=== PATIENT | male | born 1960 | race Caucasian/White ===

== ENCOUNTER 2017-09-03 14:00 | Outpatient (RCR) | payer BC ==
[~2017-09-03 14:00] MED LIST: ATENOLOL100 MG PO; HYDROCHLOROTHIA25 MG PO; LISINOPRIL40 MG PO; METFORMIN HCL1000 MG PO; VICTOZA 3-0.6 MG/0.1 INJ
== END 2017-09-06 ==
LOC: OT 14:00
PROVIDERS: ATTEND Plastic Surgery
DX: M72.0 Palmar fascial fibromatosis [Dupuytren] (principal); M79.642 Pain in left hand; M25.642 Stiffness of left hand, not elsewhere classified
CPT/HCPCS: 97110; 97165; L3913

== ENCOUNTER 2017-10-06 11:00 | Outpatient (RCR) | payer BC | END 2017-10-07 | LOC: OT 11:00 | PROVIDERS: ATTEND Plastic Surgery | DX: M72.0 Palmar fascial fibromatosis [Dupuytren] (principal); M79.642 Pain in left hand; M25.642 Stiffness of left hand, not elsewhere classified ==

== ENCOUNTER 2017-11-03 10:55 | Outpatient (RCR) | payer BC | END 2017-11-04 | LOC: OT 10:55 | PROVIDERS: ATTEND Plastic Surgery | DX: M72.0 Palmar fascial fibromatosis [Dupuytren] (principal) | CPT/HCPCS: 97010 ×6; 97035 ×6; 97110 ×5; 97139; 97140 ×6; L3933 ==

== ENCOUNTER 2017-11-10 10:59 | Outpatient (RCR) | payer BC | END 2017-12-05 | LOC: OT 10:59 | PROVIDERS: ATTEND Plastic Surgery | DX: M72.0 Palmar fascial fibromatosis [Dupuytren] (principal) | CPT/HCPCS: 97139 ==

== ENCOUNTER 2017-12-31 12:00 | Outpatient (RCR) | payer BC | END 2018-01-04 | LOC: OT 12:00 | PROVIDERS: ATTEND Plastic Surgery | DX: M72.0 Palmar fascial fibromatosis [Dupuytren] (principal) ==

== ENCOUNTER 2018-01-21 11:56 | Outpatient (RCR) | payer BC | END 2018-02-04 | LOC: OT 11:56 | PROVIDERS: ATTEND Plastic Surgery | DX: M72.0 Palmar fascial fibromatosis [Dupuytren] (principal) ==

== ENCOUNTER → 2020-09-04 | Outpatient (CLI) | payer OTHER ==
[~2020-09-04] MED LIST changes: +COVID-19 VACC, MRNA(MODERNA)/PF 100 MCG/0.5 ML VIAL IM ONE
== END ==
LOC: VACCPMC 01:30
DX: Z23 Encounter for immunization (principal); Z20.828 Contact with and (suspected) exposure to other viral communicable diseases

== ENCOUNTER → 2020-10-11 | Outpatient (CLI) | payer BC, OTHER | END | DRG 951 | LOC: VACCPMC 07:45 | DX: Z23 Encounter for immunization (principal); Z20.822 Contact with and (suspected) exposure to COVID-19 | CPT/HCPCS: 0012A; 91301 ==

== ENCOUNTER → 2021-07-05 | Outpatient (CLI) | payer OTHER, BC | LOC: VACCPMC 07:03 | DX: Z23 Encounter for immunization (principal); Z20.822 Contact with and (suspected) exposure to COVID-19 | CPT/HCPCS: 91301 ==